=== PATIENT | female | born 1950 | race Asian ===

== ENCOUNTER 2018-10-30 20:06 | Inpatient (IN) | payer MEDICARE, OTHER ==
[2018-10-30] MEDS ORDERED: LEVALBUTEROL (NEB) 0.63 MG/3 ML AMP INH (23:27)
[2018-10-30] MEDS ORDERED: IPRATROPIUM (NEB) 0.5 MG/2.5 ML AMP NEB (23:27)
[2018-10-31] MEDS: IPRATROPIUM (NEB) 0.5 MG/2.5 ML AMP NEB (00:01)
[2018-10-31] MEDS: LEVALBUTEROL (NEB) 1.25 MG/0.5 ML AMP HHN (00:01)
[2018-10-31] MEDS: LEVOFLOXACIN 500MG/D5W (PMX) 100 ML IVPB (00:28)
[2018-10-31] MEDS: morphine 2 MG INJ IV (00:30)
[2018-10-31] MEDS: ONDANSETRON 4 MG INJ IV (00:30)
[2018-10-31 00:31] LABS: WHITE BLOOD COUNT 6.5 10^3/ul (4.8-10.8)
[2018-10-31 00:31] LABS: ABNORMAL IP MESSAGE 1; HEMATOCRIT 39.3 % (37.0-47.0); MEAN CORPUSCULAR HEMOGLOBIN 29.3 pg (29.0-33.0); MEAN CORPUSCULAR HGB CONC 33.1 g/dl (32.0-37.0); MEAN CORPUSCULAR VOLUME 88.5 fl (82.0-101.0); MEAN PLATELET VOLUME 9.5 fl (7.4-10.4); PLATELET COUNT 236 10^3/UL (140-415); RED BLOOD COUNT 4.44 10^6/ul (4.20-5.40); RED CELL DISTRIBUTION WIDTH 13.3 % (11.5-14.5)
[2018-10-31 00:47] LABS: LACTIC ACID 3.5 mmol/L (0.5-2.0)
[2018-10-31 01:11] LABS: ADD MAN DIFF? YES; POSITIVE DIFF @See below
[2018-10-31] MEDS: SOD CHLORIDE 0.9% 1,000 ML IV ×3 (01:43→13:41)
[2018-10-31] MEDS: ACETAMINOPHEN 500 MG TAB PO (01:45)
[2018-10-31 02:03] LABS: BAND NEUTROPHILS #M 3.1 10^3/ul (0.0-0.6); BAND NEUTROPHILS % (M) 48 % (0-4); GIANT THROMBO% (M) 2 % (0-0); LYMPHOCYTES #M 0.3 10^3/ul (0.8-2.9); LYMPHOCYTES % (M) 6 % (15-51); METAMYELOCYTES #M 0.1 10^3/ul (0.0-0.0); METAMYELOCYTES %M 3 % (0-0); MONOCYTE #M 0.5 10^3/ul (0.3-0.9); MONOCYTES % (M) 9 % (0-11); PLATELET ESTIMATE NORMAL; POIKILOCYTOSIS 2+ (0-0); POLYCHROMASIA 1+ (0-0); SEG NEUT #M 2.4 10^3/ul (1.6-7.5); SEGMENTED NEUTROPHILS (M) % 34 % (39-77); SMUDGE%M 2 % (0-0)
[2018-10-31 02:07] LABS: ADD UMIC YES; UR ASCORBIC ACID NEGATIVE (NEGATIVE); UR BACTERIA FEW /HPF (NONE SEEN); UR BILIRUBIN (Dip) NEGATIVE (NEGATIVE); UR BLOOD (Dip) 2+ mg/dL (NEGATIVE); UR CLARITY CLOUDY (CLEAR); UR COLOR AMBER (YELLOW); UR GLUCOSE (Dip) 1+ mg/dL (NEGATIVE); UR KETONES (Dip) NEGATIVE (NEGATIVE); UR LEUKOCYTE ESTERASE (Dip) 1+ Leu/ul (NEGATIVE); UR MUCUS FEW /HPF (NONE SEEN); UR NITRITE (Dip) NEGATIVE (NEGATIVE); UR RBC 31 /HPF (0-5); UR SPECIFIC GRAVITY (Dip) 1.025 (1.003-1.030); UR SQUAMOUS EPITHELIAL CELL FEW /HPF (FEW); UR TOTAL PROTEIN (Dip) 1+ mg/dl (NEGATIVE); UR UROBILINOGEN (Dip) NEGATIVE (NEGATIVE); UR WBC 20 /HPF (0-5)
[2018-10-31] MEDS ORDERED: ACETAMINOPHEN 325 MG TAB PO (02:30)
[2018-10-31] MEDS ORDERED: NACL 0.9% 3 ML SYG IV (02:30)
[2018-10-31] MEDS ORDERED: DOCUSATE SODIUM 100 MG CAP PO (02:30)
[2018-10-31] MEDS ORDERED: ONDANSETRON 4 MG INJ IV (02:30)
[2018-10-31] MEDS ORDERED: BISACODYL (EC) 5 MG TAB PO (02:30)
[2018-10-31 02:32] LABS: ALANINE AMINOTRANSFERASE 13 IU/L (13-69); ALBUMIN 3.4 g/dl (3.3-4.9); ALBUMIN/GLOBULIN RATIO 1.06; ALKALINE PHOSPHATASE 59 IU/L (42-121); ANION GAP 13 (5-13); ASPARTATE AMINO TRANSFERASE 27 IU/L (15-46); BILIRUBIN,INDIRECT 0.5 mg/dl (0-1.1); BILIRUBIN,TOTAL 0.5 mg/dl (0.2-1.3); BLOOD UREA NITROGEN 30 mg/dl (7-20); CALCIUM 8.4 mg/dl (8.4-10.2); CARBON DIOXIDE 20 mmol/L (21-31); CHLORIDE 97 mmol/L (97-110); Estimated GFR 40 mL/min (>60); GLUCOSE 204 mg/dl (70-220); POTASSIUM 3.4 mmol/L (3.5-5.1); SODIUM 130 mmol/L (135-144); TOTAL PROTEIN 6.6 g/dl (6.1-8.1)
[2018-10-31] MEDS: AZTREONAM 1 GM/NS (PMX) 50 ML IVPB ×3 (02:55→13:32)
[2018-10-31] MEDS: LEVOFLOXACIN 250MG/D5W (PMX) 50 ML IVPB (03:17)
[2018-10-31] MEDS: SOD CHLORIDE 0.9% 1,830 ML IV (03:18)
[2018-10-31] MEDS: LORAZEPAM 2 MG INJ IV (03:41)
[2018-10-31 04:10] LABS: AADO2 Arterial 132.4 mmHg (7.0-24.0); Arterial Base Excess -8.6 mmol/L (-3.0-3); Arterial Blood Gas Oxygen Sat 87.9 mmHG (95.0-98.0); Arterial COHb 0.1 % (0.0-3.0); Arterial Fraction of Oxyhgb 87.5 % (93.0-99.0); Arterial HCO3 17.6 mmol/L (22.0-26.0); Arterial MetHb 0.4 % (0.0-1.5); Arterial pCO2 38.8 mmhg (35-45); MODE NASAL CANNULA; Site Right Brachial
[2018-10-31] MEDS: ACETAMINOPHEN 325 MG TAB PO ×2 (04:15→15:54)
[2018-10-31] MEDS: METHYLPREDNISOLONE 40 MG INJ IV (04:15)
[2018-10-31 04:24] LABS: B-TYPE NATRIURETIC PEPTIDE 609 PG/ML (0-125)
[2018-10-31 06:01] LABS: CHOLESTEROL 106 mg/dl (100-200)
[2018-10-31 06:01] LABS: HDL CHOLESTEROL 35 mg/dl (33-92); LDL CHOLESTEROL,CALCULATED 54 mg/dl; TRIGLYCERIDES 83 mg/dl (0-149)
[2018-10-31 06:25] LABS: LACTIC ACID 3.5 mmol/L (0.5-2.0)
[2018-10-31 06:44] LABS: HIV 1&2 ANTIBODY NEGATIVE (NEGATIVE)
[2018-10-31 06:53] LABS: HEMOGLOBIN A1C 5.8 % (0-5.9)
[2018-10-31 08:02] LABS: Arterial Base Excess -10.6 mmol/L (-3.0-3); Arterial Blood Gas Oxygen Sat 99.1 mmHG (95.0-98.0); Arterial COHb 0.3 % (0.0-3.0); Arterial Fraction of Oxyhgb 98.4 % (93.0-99.0); Arterial MetHb 0.4 % (0.0-1.5); Arterial pCO2 27.4 mmhg (35-45); Blood Gas IEPAP 15/5; Blood Gas PS 10; MODE MASK - BIPAP; Site Right Brachial
[2018-10-31] MEDS: FUROSEMIDE 20 MG INJ IV (11:49)
[2018-10-31] MEDS: ALBUTEROL/IPRATROPIUM (NEB) 3 ML AMP HHN (13:38)
[2018-10-31] MEDS: LEVALBUTEROL (NEB) 0.63 MG/3 ML AMP HHN ×3 (13:54→21:14)
[2018-10-31] MEDS: IPRATROPIUM (NEB) 0.5 MG/2.5 ML AMP HHN ×3 (13:54→21:16)
[2018-10-31 14:39] LABS: LACTIC ACID 3.1 mmol/L (0.5-2.0)
[2018-10-31 15:10] LABS: B-TYPE NATRIURETIC PEPTIDE 545 PG/ML (0-125)
[2018-10-31 16:07] LABS: SODIUM,URINE RANDOM 110 mmol/L (30-90)
[2018-10-31 16:08] LABS: CREATININE,URINE RANDOM 18.56 mg/dl (20-320)
[2018-10-31 16:53] LABS: AADO2 Arterial 107.8 mmHg (7.0-24.0); Allen Test ACCEPTAB; Arterial Blood Gas Oxygen Sat 95.2 mmHG (95.0-98.0); Arterial COHb 0.3 % (0.0-3.0); Arterial Fraction of Oxyhgb 94.7 % (93.0-99.0); Arterial HCO3 18.3 mmol/L (22.0-26.0); Arterial MetHb 0.2 % (0.0-1.5); Arterial pCO2 28.8 mmhg (35-45); MODE NASAL CANNULA; Site Right Radial
[2018-11-01] MEDS: IPRATROPIUM (NEB) 0.5 MG/2.5 ML AMP HHN ×6 (00:27→19:42)
[2018-11-01] MEDS: LEVALBUTEROL (NEB) 0.63 MG/3 ML AMP HHN ×6 (00:27→19:42)
[2018-11-01] MEDS: AZTREONAM 1 GM/NS (PMX) 50 ML IVPB ×3 (00:55→23:55)
[2018-11-01] MEDS: LEVOFLOXACIN 750MG/D5W (PMX) 150 ML IVPB (04:43)
[2018-11-01 05:46] LABS: WHITE BLOOD COUNT 16.4 10^3/ul (4.8-10.8)
[2018-11-01 05:46] LABS: ABNORMAL IP MESSAGE 1; HEMATOCRIT 32.6 % (37.0-47.0); MEAN CORPUSCULAR HEMOGLOBIN 29.3 pg (29.0-33.0); MEAN CORPUSCULAR HGB CONC 33.7 g/dl (32.0-37.0); MEAN CORPUSCULAR VOLUME 86.7 fl (82.0-101.0); MEAN PLATELET VOLUME 9.7 fl (7.4-10.4); PLATELET COUNT 248 10^3/UL (140-415); RED BLOOD COUNT 3.76 10^6/ul (4.20-5.40); RED CELL DISTRIBUTION WIDTH 13.4 % (11.5-14.5)
[2018-11-01 05:53] LABS: ADD MAN DIFF? YES; POSITIVE DIFF @See below
[2018-11-01 06:08] LABS: MAGNESIUM 2.3 mg/dl (1.7-2.5)
[2018-11-01 06:08] LABS: PHOSPHORUS 1.7 mg/dl (2.5-4.9)
[2018-11-01 06:15] LABS: LACTIC ACID 1.4 mmol/L (0.5-2.0)
[2018-11-01 06:21] LABS: ALANINE AMINOTRANSFERASE 21 IU/L (13-69); ALBUMIN 2.9 g/dl (3.3-4.9); ALBUMIN/GLOBULIN RATIO 0.96; ALKALINE PHOSPHATASE 62 IU/L (42-121); ANION GAP 9 (5-13); ASPARTATE AMINO TRANSFERASE 34 IU/L (15-46); BILIRUBIN,INDIRECT 0.3 mg/dl (0-1.1); BILIRUBIN,TOTAL 0.3 mg/dl (0.2-1.3); BLOOD UREA NITROGEN 15 mg/dl (7-20); CALCIUM 8.6 mg/dl (8.4-10.2); CARBON DIOXIDE 22 mmol/L (21-31); CHLORIDE 103 mmol/L (97-110); CREATININE 0.79 mg/dl (0.44-1.00); Estimated GFR > 60 mL/min (>60); GLUCOSE 108 mg/dl (70-220); POTASSIUM 3.3 mmol/L (3.5-5.1); SODIUM 134 mmol/L (135-144); TOTAL PROTEIN 5.9 g/dl (6.1-8.1)
[2018-11-01] MEDS: ACETAMINOPHEN 325 MG TAB PO (09:00)
[2018-11-01 09:17] LABS: ANISOCYTOSIS 1+ (0-0); BAND NEUTROPHILS #M 5.2 10^3/ul (0.0-0.6); BAND NEUTROPHILS % (M) 32 % (0-4); LYMPHOCYTES #M 1.1 10^3/ul (0.8-2.9); LYMPHOCYTES % (M) 7 % (15-51); METAMYELOCYTES #M 0.1 10^3/ul (0.0-0.0); METAMYELOCYTES %M 1 % (0-0); MONOCYTE #M 0.1 10^3/ul (0.3-0.9); MONOCYTES % (M) 1 % (0-11); MYELOCYTES #M 0.1 10^3/ul (0.0-0.0); MYELOCYTES % (M) 1 % (0-0); SEG NEUT #M 10.4 10^3/ul (1.7-7.5); SEGMENTED NEUTROPHILS (M) % 58 % (39-77)
[2018-11-01] MEDS: POTASSIUM CHLORIDE (SR) 20 MEQ TAB PO (09:32)
[2018-11-01] MEDS: METHYLPREDNISOLONE 125 MG INJ IV (10:39)
[2018-11-01] MEDS: HEPARIN 5,000 UNIT/1 ML VIAL SC ×2 (10:52→21:45)
[2018-11-01] MEDS: AZITHROMYCIN 500MG/NS (PMX) 250 ML IVPB (10:53)
[2018-11-01] MEDS ORDERED: METHYLPREDNISOLONE 40 MG INJ IV (12:00)
[2018-11-01] MEDS: POTASSIUM PHOSPHATE 15 MM in SOD CHLORIDE 0.9% 250 ML IVPB (13:59)
[2018-11-01] MEDS: METHYLPREDNISOLONE 40 MG INJ IV ×2 (14:15→21:32)
[2018-11-01] MEDS ORDERED: VANCOMYCIN IV PER PHARMACY XX (15:30)
[2018-11-01] MEDS: VANCOMYCIN HCL 1.25 GM in SOD CHLORIDE 0.9% 250 ML IVPB (19:06)
[2018-11-01] MEDS: FAMOTIDINE 20 MG TAB PO (21:32)
[2018-11-02] MEDS: LEVALBUTEROL (NEB) 0.63 MG/3 ML AMP HHN ×6 (01:29→20:55)
[2018-11-02] MEDS: IPRATROPIUM (NEB) 0.5 MG/2.5 ML AMP HHN ×6 (01:29→20:53)
[2018-11-02] MEDS: LEVOFLOXACIN 750MG/D5W (PMX) 150 ML IVPB (04:42)
[2018-11-02 06:17] LABS: WHITE BLOOD COUNT 27.9 10^3/ul (4.8-10.8)
[2018-11-02 06:17] LABS: ABNORMAL IP MESSAGE 1; HEMATOCRIT 31.9 % (37.0-47.0); HEMOGLOBIN 10.8 g/dl (12.0-16.0); MEAN CORPUSCULAR HGB CONC 33.9 g/dl (32.0-37.0); MEAN CORPUSCULAR VOLUME 85.8 fl (82.0-101.0); MEAN PLATELET VOLUME 9.5 fl (7.4-10.4); PLATELET COUNT 295 10^3/UL (140-415); RED BLOOD COUNT 3.72 10^6/ul (4.20-5.40); RED CELL DISTRIBUTION WIDTH 13.9 % (11.5-14.5)
[2018-11-02 06:20] LABS: ADD MAN DIFF? YES; POSITIVE DIFF @See below
[2018-11-02] MEDS: METHYLPREDNISOLONE 40 MG INJ IV ×3 (06:28→21:30)
[2018-11-02 06:38] LABS: ALANINE AMINOTRANSFERASE 12 IU/L (13-69); ALBUMIN 2.9 g/dl (3.3-4.9); ALKALINE PHOSPHATASE 97 IU/L (42-121); ANION GAP 11 (5-13); ASPARTATE AMINO TRANSFERASE 22 IU/L (15-46); BILIRUBIN,INDIRECT 0.1 mg/dl (0-1.1); BILIRUBIN,TOTAL 0.1 mg/dl (0.2-1.3); BLOOD UREA NITROGEN 14 mg/dl (7-20); CALCIUM 8.7 mg/dl (8.4-10.2); CARBON DIOXIDE 21 mmol/L (21-31); CHLORIDE 104 mmol/L (97-110); CREATININE 0.63 mg/dl (0.44-1.00); Estimated GFR > 60 mL/min (>60); GLUCOSE 143 mg/dl (70-220); POTASSIUM 3.3 mmol/L (3.5-5.1); SODIUM 136 mmol/L (135-144); TOTAL PROTEIN 6.1 g/dl (6.1-8.1)
[2018-11-02 07:13] LABS: ANISOCYTOSIS 1+ (0-0); BURR CELLS 2+ (0-0); LYMPHOCYTES #M 0.8 10^3/ul (0.8-2.9); LYMPHOCYTES % (M) 3 % (15-51); MICROCYTOSIS 1+ (0-0); MONOCYTE #M 0.8 10^3/ul (0.3-0.9); MONOCYTES % (M) 3 % (0-11); PLATELET ESTIMATE NORMAL; POIKILOCYTOSIS 2+ (0-0); POLYCHROMASIA 3+ (0-0); PROMYELOCYTES #M 0.2 10^3/ul (0-0); PROMYELOCYTES % (M) 1 % (0-0); RBC MORPHOLOGY COMMENT @See below; SEGMENTED NEUTROPHILS (M) % 93 % (39-77); SMUDGE%M 1 % (0-0); WBC MORPHOLOGY COMMENT @See below
[2018-11-02] MEDS: HEPARIN 5,000 UNIT/1 ML VIAL SC ×2 (08:26→20:50)
[2018-11-02] MEDS: CEFTRIAXONE 1 GM/50 ML (PMX) 50 ML IVPB (08:26)
[2018-11-02] MEDS: POTASSIUM PHOSPHATE 15 MM in SOD CHLORIDE 0.9% 250 ML IVPB (11:33)
[2018-11-02] MEDS: LACTOBACILLUS RHAMNOSUS CAP PO ×2 (12:02→20:40)
[2018-11-02 12:36] LABS: MYELOPEROXIDASE ANTIBODY <1.0 AI; PROTEINASE-3 ANTIBODY <1.0 AI
[2018-11-02] MEDS: VANCOMYCIN 1 GM 250 ML IVPB (17:55)
[2018-11-02 19:42] LABS: ANCA SCREEN NEGATIVE (NEGATIVE)
[2018-11-02] MEDS: FAMOTIDINE 20 MG TAB PO (20:40)
[2018-11-02] MEDS: LEVALBUTEROL (NEB) 1.25 MG/0.5 ML AMP HHN (20:54)
[2018-11-03] MEDS: IPRATROPIUM (NEB) 0.5 MG/2.5 ML AMP HHN ×6 (03:37→21:31)
[2018-11-03] MEDS: LEVALBUTEROL (NEB) 0.63 MG/3 ML AMP HHN ×6 (03:38→21:00)
[2018-11-03] MEDS: LEVOFLOXACIN 750MG/D5W (PMX) 150 ML IVPB (04:10)
[2018-11-03] MEDS: METHYLPREDNISOLONE 40 MG INJ IV ×2 (05:49→13:01)
[2018-11-03 06:27] LABS: ABNORMAL IP MESSAGE 1; HEMATOCRIT 31.9 % (37.0-47.0); HEMOGLOBIN 10.8 g/dl (12.0-16.0); MEAN CORPUSCULAR HGB CONC 33.9 g/dl (32.0-37.0); MEAN CORPUSCULAR VOLUME 85.8 fl (82.0-101.0); MEAN PLATELET VOLUME 9.6 fl (7.4-10.4); PLATELET COUNT 312 10^3/UL (140-415); RED BLOOD COUNT 3.72 10^6/ul (4.20-5.40); RED CELL DISTRIBUTION WIDTH 13.8 % (11.5-14.5)
[2018-11-03 06:27] LABS: WHITE BLOOD COUNT 31.2 10^3/ul (4.8-10.8)
[2018-11-03 06:40] LABS: ADD MAN DIFF? YES; POSITIVE DIFF @See below
[2018-11-03 06:45] LABS: ALANINE AMINOTRANSFERASE 17 IU/L (13-69); ALBUMIN 2.8 g/dl (3.3-4.9); ALBUMIN/GLOBULIN RATIO 0.84; ALKALINE PHOSPHATASE 117 IU/L (42-121); ANION GAP 9 (5-13); ASPARTATE AMINO TRANSFERASE 31 IU/L (15-46); BILIRUBIN,INDIRECT 0.3 mg/dl (0-1.1); BILIRUBIN,TOTAL 0.3 mg/dl (0.2-1.3); BLOOD UREA NITROGEN 16 mg/dl (7-20); CALCIUM 8.5 mg/dl (8.4-10.2); CARBON DIOXIDE 26 mmol/L (21-31); CHLORIDE 105 mmol/L (97-110); CREATININE 0.66 mg/dl (0.44-1.00); Estimated GFR > 60 mL/min (>60); GLUCOSE 204 mg/dl (70-220); POTASSIUM 3.3 mmol/L (3.5-5.1); SODIUM 140 mmol/L (135-144); TOTAL PROTEIN 6.1 g/dl (6.1-8.1)
[2018-11-03 07:40] LABS: ANISOCYTOSIS 1+ (0-0); BAND NEUTROPHILS #M 1.8 10^3/ul (0.0-0.6); BAND NEUTROPHILS % (M) 6 % (0-4); BURR CELLS 1+ (0-0); GIANT THROMBO% (M) 1 % (0-0); LYMPHOCYTES #M 0.3 10^3/ul (0.8-2.9); LYMPHOCYTES % (M) 1 % (15-51); METAMYELOCYTES #M 0.6 10^3/ul (0.0-0.0); METAMYELOCYTES %M 2 % (0-0); MONOCYTE #M 0.3 10^3/ul (0.3-0.9); MONOCYTES % (M) 1 % (0-11); PLASMA CELLS #M 0.3 10^3/ul (0.0-0.0); PLASMAC%(M) 1 % (0); PLATELET ESTIMATE NORMAL; SEG NEUT #M 28.3 10^3/ul (1.6-7.5); SEGMENTED NEUTROPHILS (M) % 89 % (39-77); TOXIC GRANULATION 1+ (0-0)
[2018-11-03] MEDS: LACTOBACILLUS RHAMNOSUS CAP PO ×2 (08:04→20:41)
[2018-11-03] MEDS: CEFTRIAXONE 1 GM/50 ML (PMX) 50 ML IVPB (08:05)
[2018-11-03] MEDS: ACETAMINOPHEN 325 MG TAB PO (09:22)
[2018-11-03] MEDS: HEPARIN 5,000 UNIT/1 ML VIAL SC ×2 (09:50→22:24)
[2018-11-03] MEDS: GUAIFENESIN/DM 5ML CUP PO (09:55)
[2018-11-03] MEDS: ERGOCALCIFEROL 50,000 UNIT CAP PO (11:58)
[2018-11-03] MEDS: POTASSIUM CHLORIDE (SR) 20 MEQ TAB PO (11:58)
[2018-11-03] MEDS: CHOLECALCIFEROL 2,000 UNIT CAP PO (12:18)
[2018-11-03] MEDS: SOD PHOS MONO/DIBAS 250 MG TAB PO (12:46)
[2018-11-03] MEDS: VANCOMYCIN 1 GM 250 ML IVPB (17:21)
[2018-11-03] MEDS: FAMOTIDINE 20 MG TAB PO (20:41)
[2018-11-03] MEDS: LEVALBUTEROL (NEB) 1.25 MG/0.5 ML AMP HHN (21:33)
[2018-11-04] MEDS: IPRATROPIUM (NEB) 0.5 MG/2.5 ML AMP HHN ×6 (01:32→20:04)
[2018-11-04] MEDS: LEVALBUTEROL (NEB) 0.63 MG/3 ML AMP HHN ×6 (01:32→20:03)
[2018-11-04] MEDS: LEVOFLOXACIN 750MG/D5W (PMX) 150 ML IVPB (05:06)
[2018-11-04 05:18] LABS: WHITE BLOOD COUNT 28.4 10^3/ul (4.8-10.8)
[2018-11-04 05:18] LABS: ABNORMAL IP MESSAGE 1; HEMATOCRIT 33.2 % (37.0-47.0); MEAN CORPUSCULAR HEMOGLOBIN 28.4 pg (29.0-33.0); MEAN CORPUSCULAR HGB CONC 33.1 g/dl (32.0-37.0); MEAN CORPUSCULAR VOLUME 85.6 fl (82.0-101.0); MEAN PLATELET VOLUME 9.5 fl (7.4-10.4); NUCLEATED RED BLOOD CELLS% 0.1 /100WBC (0.0-0.0); PLATELET COUNT 332 10^3/UL (140-415); RED BLOOD COUNT 3.88 10^6/ul (4.20-5.40); RED CELL DISTRIBUTION WIDTH 13.7 % (11.5-14.5)
[2018-11-04 05:27] LABS: POSITIVE DIFF @See below
[2018-11-04 05:28] LABS: ADD MAN DIFF? YES
[2018-11-04] MEDS: LEVALBUTEROL (NEB) 1.25 MG/0.5 ML AMP HHN ×2 (05:39→13:43)
[2018-11-04 06:08] LABS: ALANINE AMINOTRANSFERASE 31 IU/L (13-69); ALBUMIN 2.7 g/dl (3.3-4.9); ALBUMIN/GLOBULIN RATIO 0.81; ALKALINE PHOSPHATASE 103 IU/L (42-121); ANION GAP 10 (5-13); ASPARTATE AMINO TRANSFERASE 42 IU/L (15-46); BILIRUBIN,INDIRECT 0.3 mg/dl (0-1.1); BILIRUBIN,TOTAL 0.3 mg/dl (0.2-1.3); BLOOD UREA NITROGEN 15 mg/dl (7-20); CARBON DIOXIDE 26 mmol/L (21-31); CHLORIDE 103 mmol/L (97-110); CREATININE 0.51 mg/dl (0.44-1.00); Estimated GFR > 60 mL/min (>60); GLUCOSE 168 mg/dl (70-220); SODIUM 139 mmol/L (135-144)
[2018-11-04 06:09] LABS: POTASSIUM 3.8 mmol/L (3.5-5.1)
[2018-11-04] MEDS: CEFTRIAXONE 1 GM/50 ML (PMX) 50 ML IVPB (08:24)
[2018-11-04] MEDS: CHOLECALCIFEROL 2,000 UNIT CAP PO (08:25)
[2018-11-04] MEDS: NYSTATIN SUSP 5 ML CUP PO ×2 (08:25→20:12)
[2018-11-04] MEDS: predniSONE 20 MG TAB PO (08:25)
[2018-11-04] MEDS: LACTOBACILLUS RHAMNOSUS CAP PO ×2 (08:49→20:12)
[2018-11-04] MEDS: HEPARIN 5,000 UNIT/1 ML VIAL SC ×2 (08:49→20:23)
[2018-11-04] MEDS ORDERED: METHYLPREDNISOLONE 40 MG INJ IV (09:00)
[2018-11-04 10:51] LABS: BAND NEUTROPHILS #M 0.8 10^3/ul (0.0-0.6); BAND NEUTROPHILS % (M) 3 % (0-4); BURR CELLS 1+ (0-0); LYMPHOCYTES #M 0.2 10^3/ul (0.8-2.9); LYMPHOCYTES % (M) 1 % (15-51); METAMYELOCYTES #M 0.8 10^3/ul (0.0-0.0); METAMYELOCYTES %M 3 % (0-0); MONOCYTE #M 0.8 10^3/ul (0.3-0.9); MONOCYTES % (M) 3 % (0-11); PLASMA CELLS #M 0.8 10^3/ul (0.0-0.0); PLASMAC%(M) 3 % (0); PLATELET ESTIMATE NORMAL; POIKILOCYTOSIS 1+ (0-0); POLYCHROMASIA 1+ (0-0); REACTIVE LYMPHOCYTES #M 0.2 10^3/ul (0.0-0.0); REACTIVE LYMPHOCYTES% (M) 1 % (0-0); SEG NEUT #M 24.9 10^3/ul (1.6-7.5); SEGMENTED NEUTROPHILS (M) % 87 % (39-77); SMUDGE%M 1 % (0-0)
[2018-11-04] MEDS: ERGOCALCIFEROL (8000 UNITS/ML PO SYG) PO (11:26)
[2018-11-04] MEDS: FAMOTIDINE 20 MG TAB PO (20:12)
[2018-11-05] MEDS: LEVALBUTEROL (NEB) 0.63 MG/3 ML AMP HHN ×6 (00:29→21:46)
[2018-11-05] MEDS: IPRATROPIUM (NEB) 0.5 MG/2.5 ML AMP HHN ×6 (00:29→21:46)
[2018-11-05 05:44] LABS: ABNORMAL IP MESSAGE 1; HEMATOCRIT 33.7 % (37.0-47.0); HEMOGLOBIN 11.4 g/dl (12.0-16.0); MEAN CORPUSCULAR HEMOGLOBIN 28.8 pg (29.0-33.0); MEAN CORPUSCULAR HGB CONC 33.8 g/dl (32.0-37.0); MEAN CORPUSCULAR VOLUME 85.1 fl (82.0-101.0); MEAN PLATELET VOLUME 9.3 fl (7.4-10.4); NUCLEATED RED BLOOD CELLS% 0.2 /100WBC (0.0-0.0); PLATELET COUNT 369 10^3/UL (140-415); RED BLOOD COUNT 3.96 10^6/ul (4.20-5.40); RED CELL DISTRIBUTION WIDTH 13.7 % (11.5-14.5)
[2018-11-05 05:50] LABS: POSITIVE DIFF @See below
[2018-11-05 05:51] LABS: ADD MAN DIFF? YES
[2018-11-05] MEDS: LEVOFLOXACIN 750 MG TABLET PO (06:19)
[2018-11-05 07:54] LABS: ANISOCYTOSIS 1+ (0-0); BAND NEUTROPHILS #M 0.3 10^3/ul (0.0-0.6); BAND NEUTROPHILS % (M) 1 % (0-4); BURR CELLS 2+ (0-0); GIANT THROMBO% (M) 1 % (0-0); LYMPHOCYTES #M 0.9 10^3/ul (0.8-2.9); LYMPHOCYTES % (M) 3 % (15-51); METAMYELOCYTES #M 1.6 10^3/ul (0.0-0.0); METAMYELOCYTES %M 5 % (0-0); MONOCYTE #M 0.6 10^3/ul (0.3-0.9); MONOCYTES % (M) 2 % (0-11); MYELOCYTES #M 0.3 10^3/ul (0.0-0.0); MYELOCYTES % (M) 1 % (0-0); PLASMA CELLS #M 1.2 10^3/ul (0.0-0.0); PLASMAC%(M) 4 % (0); PLATELET ESTIMATE NORMAL; POIKILOCYTOSIS 2+ (0-0); POLYCHROMASIA 1+ (0-0); REACTIVE LYMPHOCYTES #M 1.2 10^3/ul (0.0-0.0); REACTIVE LYMPHOCYTES% (M) 4 % (0-0); SEG NEUT #M 25.7 10^3/ul (1.6-7.5); SEGMENTED NEUTROPHILS (M) % 80 % (39-77); SMUDGE%M 10 % (0-0)
[2018-11-05] MEDS: CEFTRIAXONE 1 GM/50 ML (PMX) 50 ML IVPB (08:39)
[2018-11-05] MEDS: NYSTATIN SUSP 5 ML CUP PO ×2 (08:39→20:27)
[2018-11-05] MEDS: LACTOBACILLUS RHAMNOSUS CAP PO ×2 (08:40→20:26)
[2018-11-05] MEDS: predniSONE 20 MG TAB PO (08:40)
[2018-11-05] MEDS: CHOLECALCIFEROL 2,000 UNIT CAP PO (09:25)
[2018-11-05] MEDS: HEPARIN 5,000 UNIT/1 ML VIAL SC (09:48)
[2018-11-05 14:41] LABS: PLATELET COUNT 392 10^3/UL (140-415)
[2018-11-05 14:54] LABS: INR 1.07; PT RATIO 1.1
[2018-11-05 14:55] LABS: PARTIAL THROMBOPLASTIN TIME 33.1 Sec (23.0-35.0); THROMBIN TIME 18.7 SEC (13.8-19.1)
[2018-11-05] MEDS: FAMOTIDINE 20 MG TAB PO (20:27)
[2018-11-06] MEDS: IPRATROPIUM (NEB) 0.5 MG/2.5 ML AMP HHN ×6 (01:15→20:39)
[2018-11-06] MEDS: LEVALBUTEROL (NEB) 0.63 MG/3 ML AMP HHN ×6 (01:15→21:00)
[2018-11-06 05:44] LABS: WHITE BLOOD COUNT 30.9 10^3/ul (4.8-10.8)
[2018-11-06 05:44] LABS: ABNORMAL IP MESSAGE 1; HEMATOCRIT 35.1 % (37.0-47.0); HEMOGLOBIN 11.9 g/dl (12.0-16.0); MEAN CORPUSCULAR HEMOGLOBIN 28.7 pg (29.0-33.0); MEAN CORPUSCULAR HGB CONC 33.9 g/dl (32.0-37.0); MEAN CORPUSCULAR VOLUME 84.6 fl (82.0-101.0); MEAN PLATELET VOLUME 9.3 fl (7.4-10.4); NUCLEATED RED BLOOD CELLS% 0.1 /100WBC (0.0-0.0); PLATELET COUNT 408 10^3/UL (140-415); RED BLOOD COUNT 4.15 10^6/ul (4.20-5.40); RED CELL DISTRIBUTION WIDTH 13.9 % (11.5-14.5)
[2018-11-06 05:51] LABS: ADD MAN DIFF? YES; POSITIVE DIFF @See below
[2018-11-06] MEDS: LEVOFLOXACIN 750 MG TABLET PO (06:12)
[2018-11-06 06:29] LABS: ANION GAP 7 (5-13); BLOOD UREA NITROGEN 20 mg/dl (7-20); CALCIUM 7.9 mg/dl (8.4-10.2); CARBON DIOXIDE 34 mmol/L (21-31); CHLORIDE 98 mmol/L (97-110); CREATININE 0.64 mg/dl (0.44-1.00); Estimated GFR > 60 mL/min (>60); GLUCOSE 114 mg/dl (70-220); SODIUM 139 mmol/L (135-144)
[2018-11-06 06:42] LABS: POTASSIUM 2.7 mmol/L (3.5-5.1)
[2018-11-06] MEDS: CEFTRIAXONE 1 GM/50 ML (PMX) 50 ML IVPB (07:29)
[2018-11-06 08:07] LABS: ANISOCYTOSIS 1+ (0-0); BAND NEUTROPHILS #M 1.2 10^3/ul (0.0-0.6); BAND NEUTROPHILS % (M) 4 % (0-4); ERYTHROBLAST% (NRBC) (M) 2 % (0-0); LYMPHOCYTES #M 2.4 10^3/ul (0.8-2.9); LYMPHOCYTES % (M) 8 % (15-51); METAMYELOCYTES #M 0.6 10^3/ul (0.0-0.0); METAMYELOCYTES %M 2 % (0-0); MONOCYTE #M 2.7 10^3/ul (0.3-0.9); MONOCYTES % (M) 9 % (0-11); MYELOCYTES #M 0.3 10^3/ul (0.0-0.0); MYELOCYTES % (M) 1 % (0-0); PLATELET ESTIMATE NORMAL; POIKILOCYTOSIS 1+ (0-0); POLYCHROMASIA 3+ (0-0); REACTIVE LYMPHOCYTES #M 0.9 10^3/ul (0.0-0.0); REACTIVE LYMPHOCYTES% (M) 3 % (0-0); SEG NEUT #M 22.9 10^3/ul (1.6-7.5); SEGMENTED NEUTROPHILS (M) % 73 % (39-77); SMUDGE%M 9 % (0-0); TARGET CELLS 1+ (0-0)
[2018-11-06] MEDS: LACTOBACILLUS RHAMNOSUS CAP PO ×2 (08:07→20:44)
[2018-11-06] MEDS: predniSONE 20 MG TAB PO (08:07)
[2018-11-06] MEDS: CHOLECALCIFEROL 2,000 UNIT CAP PO (08:07)
[2018-11-06] MEDS: NYSTATIN SUSP 5 ML CUP PO ×2 (08:07→20:47)
[2018-11-06] MEDS: POTASSIUM CHLORIDE 100 ML IVPB ×3 (09:06→12:29)
[2018-11-06 09:11] LABS: MAGNESIUM 2.5 mg/dl (1.7-2.5)
[2018-11-06] MEDS: LEVALBUTEROL (NEB) 1.25 MG/0.5 ML AMP HHN ×2 (09:36→20:39)
[2018-11-06] MEDS: FAMOTIDINE 20 MG TAB PO (20:44)
[2018-11-07] MEDS: IPRATROPIUM (NEB) 0.5 MG/2.5 ML AMP HHN ×6 (00:04→20:26)
[2018-11-07] MEDS: LEVALBUTEROL (NEB) 0.63 MG/3 ML AMP HHN ×6 (00:04→20:26)
[2018-11-07] MEDS ORDERED: SEVOFLURANE 15 MIN (07:00)
[2018-11-07] MEDS ORDERED: GLYCOPYRROLATE 0.4 MG INJ (07:00)
[2018-11-07] MEDS ORDERED: NEOSTIGMINE 3 MG/3 ML SYRINGE (07:00)
[2018-11-07 07:52] LABS: WHITE BLOOD COUNT 22.1 10^3/ul (4.8-10.8)
[2018-11-07 07:52] LABS: ABNORMAL IP MESSAGE 1; HEMATOCRIT 33.1 % (37.0-47.0); HEMOGLOBIN 10.8 g/dl (12.0-16.0); MEAN CORPUSCULAR HEMOGLOBIN 28.3 pg (29.0-33.0); MEAN CORPUSCULAR HGB CONC 32.6 g/dl (32.0-37.0); MEAN CORPUSCULAR VOLUME 86.9 fl (82.0-101.0); MEAN PLATELET VOLUME 8.9 fl (7.4-10.4); PLATELET COUNT 441 10^3/UL (140-415); RED BLOOD COUNT 3.81 10^6/ul (4.20-5.40); RED CELL DISTRIBUTION WIDTH 14.1 % (11.5-14.5)
[2018-11-07 08:00] LABS: POSITIVE DIFF @See below
[2018-11-07 08:01] LABS: ADD MAN DIFF? YES
[2018-11-07 08:11] LABS: ANION GAP 4 (5-13); BLOOD UREA NITROGEN 18 mg/dl (7-20); CALCIUM 7.7 mg/dl (8.4-10.2); CARBON DIOXIDE 30 mmol/L (21-31); CHLORIDE 105 mmol/L (97-110); CREATININE 0.61 mg/dl (0.44-1.00); Estimated GFR > 60 mL/min (>60); GLUCOSE 93 mg/dl (70-220); SODIUM 139 mmol/L (135-144)
[2018-11-07] MEDS: LACTOBACILLUS RHAMNOSUS CAP PO ×3 (08:42→20:44)
[2018-11-07] MEDS: predniSONE 20 MG TAB PO ×2 (08:42→09:35)
[2018-11-07] MEDS: NYSTATIN SUSP 5 ML CUP PO ×3 (08:42→20:44)
[2018-11-07] MEDS: CHOLECALCIFEROL 2,000 UNIT CAP PO ×2 (08:42→09:00)
[2018-11-07] MEDS: CEFTRIAXONE 1 GM/50 ML (PMX) 50 ML IVPB (08:46)
[2018-11-07] MEDS: POTASSIUM CHLORIDE (SR) 20 MEQ TAB PO (09:34)
[2018-11-07 10:20] LABS: ANISOCYTOSIS 1+ (0-0); BAND NEUTROPHILS #M 0.4 10^3/ul (0.0-0.6); BAND NEUTROPHILS % (M) 2 % (0-4); ERYTHROBLAST% (NRBC) (M) 2 % (0-0); HYPOCHROMASIA 1+ (0-0); LYMPHOCYTES #M 2.6 10^3/ul (0.8-2.9); LYMPHOCYTES % (M) 12 % (15-51); METAMYELOCYTES #M 1.5 10^3/ul (0.0-0.0); METAMYELOCYTES %M 7 % (0-0); MONOCYTE #M 0.4 10^3/ul (0.3-0.9); MONOCYTES % (M) 2 % (0-11); MYELOCYTES #M 0.2 10^3/ul (0.0-0.0); MYELOCYTES % (M) 1 % (0-0); PLATELET ESTIMATE NORMAL; POLYCHROMASIA 1+ (0-0); SEG NEUT #M 16.7 10^3/ul (1.6-7.5); SEGMENTED NEUTROPHILS (M) % 75 % (39-77); SMUDGE%M 17 % (0-0)
[2018-11-07] MEDS ORDERED: FENTAnyl 50 MCG/ML VIAL (11:47)
[2018-11-07] MEDS ORDERED: MIDAZOLAM 1 MG/ML 2 ML INJ (11:47)
[2018-11-07] MEDS ORDERED: LIDOCAINE 2% (MDV) 20 ML INJ (11:48)
[2018-11-07] MEDS ORDERED: PHENYLephrine (100 MCG/ML) 10ML SYG (11:59)
[2018-11-07 12:02] LABS: PROCALCITONIN 28.64 ng/mL (<0.10)
[2018-11-07] MEDS: EPINEPHrine 1 MG INJ (12:11)
[2018-11-07] MEDS ORDERED: PROPOFOL 20 ML (12:21)
[2018-11-07] MEDS ORDERED: LIDOCAINE 2% (SDV) 5 ML INJ (12:21)
[2018-11-07] MEDS ORDERED: ONDANSETRON 4 MG INJ (12:22)
[2018-11-07] MEDS ORDERED: SUCCINYLCHOLINE CHLORIDE 100 MG/5 ML SYG IV (12:22)
[2018-11-07] MEDS ORDERED: ROCURONIUM 50 MG INJ (12:22)
[2018-11-07] MEDS ORDERED: ALBUTEROL 0.083% (NEB) 2.5 MG/3 ML AMP (12:36)
[2018-11-07] MEDS ORDERED: LABETALOL HCL 20MG INJ IV (13:00)
[2018-11-07] MEDS ORDERED: ALBUTEROL 0.083% (NEB) 2.5 MG/3 ML AMP HHN (13:00)
[2018-11-07] MEDS ORDERED: MEPERIDINE 25 MG INJ IV (13:00)
[2018-11-07] MEDS ORDERED: FENTAnyl 50 MCG/ML VIAL IV (13:00)
[2018-11-07] MEDS ORDERED: DIPHENHYDRAMINE 50 MG INJ IV (13:00)
[2018-11-07] MEDS ORDERED: ONDANSETRON 4 MG INJ IV (13:00)
[2018-11-07] MEDS ORDERED: HYDROmorphONE 1 MG/5 ML IV SYRINGE IV ×2 (13:00)
[2018-11-07] MEDS ORDERED: METOCLOPRAMIDE 10 MG INJ IV (13:00)
[2018-11-07] MEDS: FAMOTIDINE 20 MG TAB PO (20:44)
[2018-11-08] MEDS: IPRATROPIUM (NEB) 0.5 MG/2.5 ML AMP HHN ×6 (00:03→20:36)
[2018-11-08] MEDS: LEVALBUTEROL (NEB) 0.63 MG/3 ML AMP HHN ×6 (00:04→20:36)
[2018-11-08 05:44] LABS: ADD MAN DIFF? NO
[2018-11-08 05:46] LABS: WHITE BLOOD COUNT 17.3 10^3/ul (4.8-10.8)
[2018-11-08 05:46] LABS: BASOPHILS % 0.2 % (0.0-2.0); EOSINOPHILS % 0.1 % (0.0-7.0); HEMATOCRIT 33.3 % (37.0-47.0); LYMPHOCYTES # 1.4 10^3/ul (0.8-2.9); MEAN CORPUSCULAR HEMOGLOBIN 28.7 pg (29.0-33.0); MEAN CORPUSCULAR VOLUME 86.9 fl (82.0-101.0); MEAN PLATELET VOLUME 8.7 fl (7.4-10.4); MONOCYTE # 0.7 10^3/ul (0.3-0.9); MONOCYTES % 3.9 % (0.0-11.0); NEUTROPHIL # 14.5 10^3/ul (1.6-7.5); NEUTROPHILS % 83.6 % (39.0-77.0); PLATELET COUNT 477 10^3/UL (140-415); RED BLOOD COUNT 3.83 10^6/ul (4.20-5.40); RED CELL DISTRIBUTION WIDTH 14.2 % (11.5-14.5)
[2018-11-08 06:24] LABS: ANION GAP 2 (5-13); BLOOD UREA NITROGEN 13 mg/dl (7-20); CARBON DIOXIDE 28 mmol/L (21-31); CHLORIDE 106 mmol/L (97-110); CREATININE 0.57 mg/dl (0.44-1.00); GLUCOSE 124 mg/dl (70-220); POTASSIUM 4.1 mmol/L (3.5-5.1); SODIUM 136 mmol/L (135-144)
[2018-11-08 06:25] LABS: CALCIUM 7.9 mg/dl (8.4-10.2); Estimated GFR > 60 mL/min (>60)
[2018-11-08] MEDS: CHOLECALCIFEROL 2,000 UNIT CAP PO (08:34)
[2018-11-08] MEDS: LACTOBACILLUS RHAMNOSUS CAP PO ×2 (08:34→20:59)
[2018-11-08] MEDS: predniSONE 20 MG TAB PO (08:34)
[2018-11-08] MEDS: CEFPODOXIME 200 MG TAB PO ×2 (08:34→20:59)
[2018-11-08] MEDS: NYSTATIN SUSP 5 ML CUP PO ×2 (08:35→20:59)
[2018-11-08 19:46] LABS: NIL 0.01 IU/mL; QUANTIFERON(R)-TB GOLD INDETERMINATE (NEGATIVE)
[2018-11-08] MEDS: FAMOTIDINE 20 MG TAB PO (20:59)
[2018-11-09] MEDS: LEVALBUTEROL (NEB) 0.63 MG/3 ML AMP HHN ×4 (01:02→13:46)
[2018-11-09] MEDS: IPRATROPIUM (NEB) 0.5 MG/2.5 ML AMP HHN ×4 (01:02→13:46)
[2018-11-09 07:32] LABS: ADD MAN DIFF? NO
[2018-11-09 07:39] LABS: WHITE BLOOD COUNT 14.2 10^3/ul (4.8-10.8)
[2018-11-09 07:39] LABS: BASOPHILS % 0.1 % (0.0-2.0); EOSINOPHILS % 0.1 % (0.0-7.0); HEMATOCRIT 34.7 % (37.0-47.0); HEMOGLOBIN 11.1 g/dl (12.0-16.0); LYMPHOCYTES # 1.7 10^3/ul (0.8-2.9); MEAN CORPUSCULAR HEMOGLOBIN 28.4 pg (29.0-33.0); MEAN CORPUSCULAR VOLUME 88.7 fl (82.0-101.0); MEAN PLATELET VOLUME 8.8 fl (7.4-10.4); MONOCYTE # 0.8 10^3/ul (0.3-0.9); MONOCYTES % 5.9 % (0.0-11.0); NEUTROPHIL # 11.4 10^3/ul (1.6-7.5); NEUTROPHILS % 80.3 % (39.0-77.0); PLATELET COUNT 534 10^3/UL (140-415); RED BLOOD COUNT 3.91 10^6/ul (4.20-5.40); RED CELL DISTRIBUTION WIDTH 14.2 % (11.5-14.5)
[2018-11-09] MEDS: CHOLECALCIFEROL 2,000 UNIT CAP PO (09:15)
[2018-11-09] MEDS: CEFPODOXIME 200 MG TAB PO (09:16)
[2018-11-09] MEDS: NYSTATIN SUSP 5 ML CUP PO (09:16)
[2018-11-09] MEDS: predniSONE 20 MG TAB PO (09:16)
[2018-11-09] MEDS: LACTOBACILLUS RHAMNOSUS CAP PO (09:16)
== END 2018-11-09 15:25 | disposition home health service (06) | DRG 871 ==
LOC: FTE 20:06 → PP2 11-06 23:59 → 6WM 10-31 02:15
PROVIDERS: Family Medicine
PROC: 0B9D8ZX Drainage of Right Middle Lung Lobe, Via Natural or Artificial Opening Endoscopic, Diagnostic (ICD-10-PCS; principal; 2018-11-07 11:00)
PROC: 0B9C8ZX Drainage of Right Upper Lung Lobe, Via Natural or Artificial Opening Endoscopic, Diagnostic (ICD-10-PCS; 2018-11-07 11:00)
PROC: 0BDD8ZX Extraction of Right Middle Lung Lobe, Via Natural or Artificial Opening Endoscopic, Diagnostic (ICD-10-PCS; 2018-11-07 11:00)
PROC: 5A09357 Assistance with Respiratory Ventilation, Less than 24 Consecutive Hours, Continuous Positive Airway Pressure (ICD-10-PCS; 2018-11-07 11:50)
DX: A41.9 Sepsis, unspecified organism (principal); J18.9 Pneumonia, unspecified organism; J96.01 Acute respiratory failure with hypoxia; N39.0 Urinary tract infection, site not specified; N17.9 Acute kidney failure, unspecified; E87.2 Acidosis; E87.1 Hypo-osmolality and hyponatremia; B37.0 Candidal stomatitis; R65.20 Severe sepsis without septic shock; E87.6 Hypokalemia; E83.39 Other disorders of phosphorus metabolism; E55.9 Vitamin D deficiency, unspecified; D64.9 Anemia, unspecified; M19.90 Unspecified osteoarthritis, unspecified site
CPT/HCPCS: 36600; 70450; 71045; 71250; 76775; 80048; 80053; 80061; 81001; 81003; 82306; 82570; 82803; 83036; 83605; 83735; 83880; 84100; 84132; 84145; 84155; 84300; 84443; 85025; 85049; 85610; 85670; 85730; 86021; 86480; 86635; 86703; 87040-91; 87070; 87075; 87081; 87086; 87102; 87116; 87400; 87449; 88104; 88305; 88307; 93005; 93306; 94640; 94660; 94664; 97110; 97116; 97161; 97530

== ENCOUNTER 2018-11-15 08:48 | Emergency (ER) | payer MEDICARE ==
[2018-11-15] MEDS: SOD CHLORIDE 0.9% 1,000 ML IV (09:59)
[2018-11-15] MEDS: MECLIZINE 12.5 MG TAB PO (09:59)
[2018-11-15 10:00] LABS: ADD MAN DIFF? NO
[2018-11-15 10:02] LABS: BASOPHILS % 0.1 % (0.0-2.0); EOSINOPHILS # 0.1 10^3/ul (0.0-0.5); EOSINOPHILS % 0.4 % (0.0-7.0); HEMATOCRIT 37.1 % (37.0-47.0); HEMOGLOBIN 11.8 g/dl (12.0-16.0); LYMPHOCYTES # 1.2 10^3/ul (0.8-2.9); LYMPHOCYTES % 8.6 % (15.0-51.0); MEAN CORPUSCULAR HEMOGLOBIN 28.7 pg (29.0-33.0); MEAN CORPUSCULAR HGB CONC 31.8 g/dl (32.0-37.0); MEAN CORPUSCULAR VOLUME 90.3 fl (82.0-101.0); MEAN PLATELET VOLUME 8.1 fl (7.4-10.4); MONOCYTE # 0.8 10^3/ul (0.3-0.9); MONOCYTES % 5.7 % (0.0-11.0); NEUTROPHIL # 11.3 10^3/ul (1.6-7.5); NEUTROPHILS % 84.2 % (39.0-77.0); PLATELET COUNT 599 10^3/UL (140-415); RED BLOOD COUNT 4.11 10^6/ul (4.20-5.40)
[2018-11-15 10:02] LABS: WHITE BLOOD COUNT 13.5 10^3/ul (4.8-10.8)
[2018-11-15 10:22] LABS: ALANINE AMINOTRANSFERASE 28 IU/L (13-69); ALBUMIN 3.4 g/dl (3.3-4.9); ALBUMIN/GLOBULIN RATIO 0.97; ALKALINE PHOSPHATASE 88 IU/L (42-121); ASPARTATE AMINO TRANSFERASE 19 IU/L (15-46); BILIRUBIN,INDIRECT 0.7 mg/dl (0-1.1); BILIRUBIN,TOTAL 0.7 mg/dl (0.2-1.3); BLOOD UREA NITROGEN 13 mg/dl (7-20); CALCIUM 9.3 mg/dl (8.4-10.2); CARBON DIOXIDE 28 mmol/L (21-31); CREATININE 0.75 mg/dl (0.44-1.00); Estimated GFR > 60 mL/min (>60); GLUCOSE 182 mg/dl (70-220); POTASSIUM 3.7 mmol/L (3.5-5.1); SODIUM 138 mmol/L (135-144); TOTAL PROTEIN 6.9 g/dl (6.1-8.1)
[2018-11-15 10:31] LABS: CK-MB < 0.22 ng/ml (0.0-2.4)
[2018-11-15 10:35] LABS: TROPONIN-I < 0.012 ng/ml (0.000-0.120)
[2018-11-15 10:43] LABS: PROTIME 13.3 Sec (11.9-14.9)
[2018-11-15 10:44] LABS: PARTIAL THROMBOPLASTIN TIME 25.4 Sec (23.0-35.0)
[2018-11-15 11:00] LABS: ANION GAP 6 (5-13); CHLORIDE 104 mmol/L (97-110); CREATINE KINASE < 20 IU/L (23-200)
== END 2018-11-15 13:20 | disposition home or self-care (01) ==
LOC: E/R 13:20
DX: R42 Dizziness and giddiness (principal); R55 Syncope and collapse; I95.9 Hypotension, unspecified
CPT/HCPCS: 70450; 71045; 80053; 82550; 82553; 84484; 85025; 85610; 85730; 87040-91; 93005; 99285-25

== ENCOUNTER 2019-01-20 09:42 | Emergency (ER) | payer MEDICARE, OTHER ==
[2019-01-20 10:47] LABS: ADD MAN DIFF? NO
[2019-01-20 10:50] LABS: BASOPHIL # 0.1 10^3/ul (0.0-0.1); BASOPHILS % 1.2 % (0.0-2.0); EOSINOPHILS # 0.1 10^3/ul (0.0-0.5); EOSINOPHILS % 1.4 % (0.0-7.0); HEMATOCRIT 39.6 % (37.0-47.0); HEMOGLOBIN 12.9 g/dl (12.0-16.0); LYMPHOCYTES # 1.3 10^3/ul (0.8-2.9); LYMPHOCYTES % 25.3 % (15.0-51.0); MEAN CORPUSCULAR HEMOGLOBIN 28.7 pg (29.0-33.0); MEAN CORPUSCULAR HGB CONC 32.6 g/dl (32.0-37.0); MEAN PLATELET VOLUME 8.8 fl (7.4-10.4); MONOCYTE # 0.4 10^3/ul (0.3-0.9); MONOCYTES % 7.4 % (0.0-11.0); NEUTROPHIL # 3.2 10^3/ul (1.6-7.5); NEUTROPHILS % 64.5 % (39.0-77.0); PLATELET COUNT 363 10^3/UL (140-415); RED CELL DISTRIBUTION WIDTH 13.4 % (11.5-14.5)
[2019-01-20 11:11] LABS: ALANINE AMINOTRANSFERASE 12 IU/L (13-69); ALKALINE PHOSPHATASE 87 IU/L (42-121); ANION GAP 13 (5-13); ASPARTATE AMINO TRANSFERASE 21 IU/L (15-46); BILIRUBIN,INDIRECT 0.9 mg/dl (0-1.1); BILIRUBIN,TOTAL 0.9 mg/dl (0.2-1.3); BLOOD UREA NITROGEN 11 mg/dl (7-20); CARBON DIOXIDE 24 mmol/L (21-31); CHLORIDE 104 mmol/L (97-110); CREATININE 0.77 mg/dl (0.44-1.00); Estimated GFR > 60 mL/min (>60); GLUCOSE 241 mg/dl (70-220); POTASSIUM 3.5 mmol/L (3.5-5.1); SODIUM 141 mmol/L (135-144)
[2019-01-20 11:12] LABS: ALBUMIN 4.3 g/dl (3.3-4.9); ALBUMIN/GLOBULIN RATIO 1.16
[2019-01-20 11:13] LABS: ACETAMINOPHEN < 10.0 ug/ml (10.0-30.0); ETHANOL < 10.0 mg/dl (0-0); SALICYLATE < 1.0 mg/dl (5.0-30.0)
[2019-01-20 11:14] LABS: ADD UMIC YES; UR ASCORBIC ACID NEGATIVE (NEGATIVE); UR BACTERIA FEW /HPF (NONE SEEN); UR BILIRUBIN (Dip) NEGATIVE (NEGATIVE); UR BLOOD (Dip) 1+ mg/dL (NEGATIVE); UR CLARITY SLIGHTLY CLOUDY (CLEAR); UR COLOR YELLOW (YELLOW); UR GLUCOSE (Dip) 2+ mg/dL (NEGATIVE); UR KETONES (Dip) NEGATIVE (NEGATIVE); UR LEUKOCYTE ESTERASE (Dip) 2+ Leu/ul (NEGATIVE); UR MUCUS FEW /HPF (NONE SEEN); UR NITRITE (Dip) NEGATIVE (NEGATIVE); UR RBC 5 /HPF (0-5); UR SPECIFIC GRAVITY (Dip) 1.019 (1.003-1.030); UR SQUAMOUS EPITHELIAL CELL FEW /HPF (FEW); UR TOTAL PROTEIN (Dip) NEGATIVE (NEGATIVE); UR TRANSITIONAL EPI CELL FEW /HPF (NONE SEEN); UR UROBILINOGEN (Dip) NEGATIVE (NEGATIVE); UR WBC 39 /HPF (0-5)
[2019-01-20 11:36] LABS: AMPHETAMINE/METHAMPHETAMINE Negative (NEGATIVE); BARBITURATES Negative (NEGATIVE); BENZODIAZEPINES Negative (NEGATIVE); CANNABINOIDS Negative (NEGATIVE); COCAINE Negative (NEGATIVE); OPIATES Negative (NEGATIVE)
== END 2019-01-20 12:00 | disposition home or self-care (01) ==
LOC: E/R 09:42
DX: F03.91 Unspecified dementia, unspecified severity, with behavioral disturbance (principal); N30.01 Acute cystitis with hematuria; R73.9 Hyperglycemia, unspecified
CPT/HCPCS: 36415; 80053; 80307; 81001; 85025; 99283